=== PATIENT | male | born 1980 | race Caucasian/White ===

== ENCOUNTER 2022-01-29 18:54 | Emergency (ER) | payer OTHER ==
[2022-01-29] MEDS ORDERED: Ibuprofen 600 MG Tab PO ONE (19:22)
== END 2022-01-29 21:26 | disposition home or self-care (01) ==
LOC: MW.ED 18:54
DX: S90.31XA Contusion of right foot, initial encounter (principal); W20.8XXA Other cause of strike by thrown, projected or falling object, initial encounter; Y99.0 Civilian activity done for income or pay
CPT/HCPCS: 73630; 99283; A9270